=== PATIENT | male | born 1945 | race Caucasian/White ===

== ENCOUNTER 2017-06-16 16:23 | Observation (INO) ==
[2017-06-16] MEDS ORDERED: HYDROmorphone 2 MG/1 ML VIAL IV STA (16:47)
[2017-06-16] MEDS ORDERED: ONDANSETRON 4 MG/2 ML VIAL IV STA ×2 (16:47→19:12)
[2017-06-16] MEDS ORDERED: PROPOFOL 200 MG/20 ML VIAL IV ONE ×2 (17:01→17:08)
[2017-06-16 17:35] LABS: Basophils # 0.1 10*3/uL (0.0-0.2); Basophils % 0.6 % (0.0-0.8); Eosinophils # 0.1 10*3/uL (0.0-0.87); Eosinophils % 1.2 % (0.00-10.9); Hematocrit 48.4 VOL% (42.0-52.0); Hemoglobin 16.6 GM/DL (14.0-18.0); Immature Granulocytes % 0.2 %; Immature Granulocytes Absolute 0.02 #; Lymphocytes # 3.5 10*3/uL (1.4-4.0); Lymphocytes % 41.5 % (21.2-54.2); Mean Corpuscular HGB Conc 34.3 GM/DL (32-36); Mean Corpuscular Hemoglobin 32 PG (27-34); Mean Corpuscular Volume 92.7 FL (87-102); Mean Platelet Volume 9.3 FL (9.6-12.0); Monocytes # 0.9 10*3/uL (0.11-0.8); Monocytes % 10.6 % (1.7-12.7); Neutrophils # 3.8 10*3/uL (1.4-7.4); Neutrophils % 45.9 % (38.7-73.9); Platelet Count 193 T/CUMM (130-400); Red Blood Count 5.22 MC/CUMM (3.8-5.5); Red Cell Distribution Width 13.4 % (9.3-17.3); White Blood Count 8.3 T/CUMM (4-12)
[2017-06-16 17:58] LABS: Albumin 3.7 G/DL (3.4-5.0); Bilirubin,Total 0.5 MG/DL (0.2-1.0); Calcium 9.2 MG/DL (8.5-10.1); Osmolality,Calculated 284.1 MOS/KG (273-304); Potassium 4.4 MMOL/L (3.5-5.1)
[2017-06-16 17:59] LABS: INR 1.4; PT Patient Result 14.6 SECS; Partial Thromboplastin Time 35.3 SECS (0-40)
[2017-06-16] MEDS ORDERED: MAGNESIUM HYDROXIDE SUSP 30 ML UDCUP PO PRN (19:12)
[2017-06-16] MEDS ORDERED: HYDROmorphone 2 MG/1 ML VIAL IV PRN (19:12)
[2017-06-17] MEDS ORDERED: ceFAZolin 2,000 MG in PREMIX 1 EACH IV ONE (06:32)
[2017-06-17] MEDS: BACLOFEN 10 MG TABLET PO SCH ×3 (08:18→21:09)
[2017-06-17] MEDS: LACTATED RINGERS 1,000 ML IV SCH ×2 (08:19→13:34)
[2017-06-17] MEDS: GABAPENTIN 300 MG CAPSULE PO SCH ×3 (08:19→21:09)
[2017-06-17] MEDS ORDERED: FAMOTIDINE 20 MG TABLET PO ONE (09:15)
[2017-06-17] MEDS ORDERED: ACETAMINOPHEN 1,000 MG/100 ML VIAL IV ONE (10:42)
[2017-06-17] MEDS ORDERED: BACITRACIN OINT 0.9 GM PACK TOP ONE (10:49)
[2017-06-17] MEDS ORDERED: ONDANSETRON 4 MG/2 ML VIAL IV PRN (11:06)
[2017-06-17] MEDS ORDERED: KETOROLAC 15 MG/1 ML VIAL IV PRN (11:06)
[2017-06-17] MEDS ORDERED: MORPHINE 2 MG/1 ML SYRINGE IV PRN ×2 (11:06)
[2017-06-17] MEDS ORDERED: PROPOFOL 200 MG/20 ML VIAL IV ONE (12:22)
[2017-06-17] MEDS ORDERED: DEXAMETHASONE 10 MG/1 ML VIAL ONE (12:22)
[2017-06-17] MEDS ORDERED: SEVOFLURANE 1 UNIT/15 MINUTE INH ONE (12:22)
[2017-06-17] MEDS ORDERED: ONDANSETRON 4 MG/2 ML VIAL ONE (12:22)
[2017-06-17] MEDS ORDERED: HYDROmorphone 2 MG/1 ML VIAL ONE (12:22)
[2017-06-17] MEDS: ceFAZolin 2,000 MG in PREMIX 1 EACH IV SCH (16:11)
[2017-06-17] MEDS ORDERED: ATORVASTATIN 10 MG TABLET PO SCH (21:00)
[2017-06-17] MEDS ORDERED: DILTIAZEM CD 240 MG CAPSULE PO SCH (21:00)
[2017-06-17] MEDS ORDERED: TAMSULOSIN 0.4 MG CAPSULE PO SCH (21:00)
[2017-06-18] MEDS: ceFAZolin 2,000 MG in PREMIX 1 EACH IV SCH (00:45)
[2017-06-18 03:38] LABS: Basophils % 0.1 % (0.0-0.8); Hematocrit 44.5 VOL% (42.0-52.0); Hemoglobin 15.2 GM/DL (14.0-18.0); Immature Granulocytes % 0.4 %; Immature Granulocytes Absolute 0.04 #; Lymphocytes % 10.8 % (21.2-54.2); Mean Corpuscular HGB Conc 34.2 GM/DL (32-36); Mean Corpuscular Hemoglobin 31 PG (27-34); Mean Corpuscular Volume 91.9 FL (87-102); Mean Platelet Volume 9.4 FL (9.6-12.0); Monocytes # 0.7 10*3/uL (0.11-0.8); Monocytes % 7.4 % (1.7-12.7); Neutrophils # 7.7 10*3/uL (1.4-7.4); Neutrophils % 81.3 % (38.7-73.9); Platelet Count 186 T/CUMM (130-400); Red Blood Count 4.84 MC/CUMM (3.8-5.5); Red Cell Distribution Width 13.2 % (9.3-17.3); White Blood Count 9.5 T/CUMM (4-12)
[2017-06-18 03:59] LABS: Calcium 8.4 MG/DL (8.5-10.1); Osmolality,Calculated 280.5 MOS/KG (273-304); Potassium 4.5 MMOL/L (3.5-5.1)
[2017-06-18 07:39] VITALS: BP 129/74
[2017-06-18] MEDS: GABAPENTIN 300 MG CAPSULE PO SCH (08:15)
[2017-06-18] MEDS: BACLOFEN 10 MG TABLET PO SCH (08:15)
== END 2017-06-18 10:10 | disposition home or self-care (01) ==
LOC: N.EDINP 16:23 → N.ED 16:23 → N.3E 18:59
PROVIDERS: ADMIT Orthopaedic Surgery; ATTEND Orthopaedic Surgery